=== PATIENT | male | born 1940 | race Caucasian/White ===

== ENCOUNTER 2019-12-25 15:20 | Outpatient (CLI) | payer MEDICARE, SELFPAY ==
--- NOTE | ~2019-12-25 | XR_ITS ---
XR hip RT min 2V DATE: 12/25/2019 15:50 INDICATION: Right hip pain for 2 weeks laterally. No injury. TECHNIQUE: AP, lateral, crosstable lateral views of right hip COMPARISON: 08/04/2010 right hip FINDINGS: There is severe right hip joint space narrowing and prominent spurring of the right hip con sistent with severe osteoarthritis, considerably advanced in severity since 08/04/2010. No fracture or dislocation or bone destruction is evident. Pubic symphysis and sacroiliac joints are intact. IMPRESSION: Severe osteoarthritis of right hip Reviewed, dictated and finalized at location A.
== END 2019-12-25 15:21 | disposition home or self-care (01) ==
PROVIDERS: PCP Family Medicine; Visit Provider Family Medicine
DX: M25.551 Pain in right hip (principal); M16.11 Unilateral primary osteoarthritis, right hip
CPT/HCPCS: 73502

== ENCOUNTER 2020-04-07 13:02 | Outpatient (CLI) | payer MEDICARE, SELFPAY ==
--- NOTE | ~2020-04-07 | US_ITS ---
EXAMINATION: US venous doppler LE RT EXAM DATE: 04/07/2020 13:55 INDICATION: Right leg swelling. TECHNIQUE: Multiple grayscale, color flow and Doppler images of the right lower extremity deep venous system were obtained and reviewed. There is no prior study for comparison. FINDINGS: The right common femoral, femoral and profunda veins demonstrate normal color flow, respira tory variation, augmentation and compressibility. Compressibility, color flow confirmed within the r ight popliteal, posterior tibial, peroneal, and greater saphenous veins. IMPRESSION: 1. No right lower extremity deep venous thrombosis. Reviewed, dictated and finalized at location B.
--- NOTE | ~2020-04-07 | MR_ITS ---
EXAMINATION: MR lumbar spine wo con DATE: 04/07/2020 15:26 INDICATION: Right-sided L5 radiculopathy. TECHNIQUE: Magnetic resonance imaging (MRI) of the lumbar spine was performed without intravenous con trast. Sequences included sagittal T2-weighted FSE, sagittal T2-weighted FS FSE, sagittal T1-weighted FSE, and axial T2-weighted FSE. COMPARISON: Lumbar spine radiographs 08/27/2018 FINDINGS: There is 20 degrees dextroscoliosis of thoracolumbar spine. There is 4 mm anterolisthesis o f L4 on L5. Vertebral body heights are normal. There is severely decreased disc height at L1-L2, mode rately decreased disc height from L2-L3 through L4-L5, and mildly decreased disc at L5-S1. The distal spinal cord signal intensity is normal. The conus medullaris is at T12-L1. The following disc levels are specifically discussed: L1-L2: The disc is bulging. There is severe bilateral facet joint osteoarthritis. There is mild right and severe left neural foraminal stenosis. There is mild central canal stenosis. L2-L3: The disc is bulging and has an annular fissure. There is severe bilateral facet joint osteoart hritis. There is moderate bilateral neural foraminal stenosis. There is moderate central canal stenos is. L3-L4: The disc is bulging and has an annular fissure. There is severe bilateral facet joint osteoart hritis. There is moderate bilateral neural foraminal stenosis. There is mild central canal stenosis. L4-L5: The disc is bulging and has an annular fissure. There is severe bilateral facet joint osteoart hritis. There is moderate bilateral neural foraminal stenosis. There is mild central canal stenosis. L5-S1: The disc is bulging. There is severe right and moderate left facet joint osteoarthritis. There is mild bilateral neural foraminal stenosis. There is mild central canal stenosis. IMPRESSION: 1. Severe lumbar spondylosis. 2. Thoracolumbar dextroscoliosis. Reviewed, dictated and finalized at location B.
== END 2020-04-07 13:03 | disposition home or self-care (01) ==
PROVIDERS: PCP Family Medicine; Visit Provider Orthopaedic Surgery
DX: M79.605 Pain in left leg (principal); R60.0 Localized edema; M47.26 Other spondylosis with radiculopathy, lumbar region
CPT/HCPCS: 72148; 93971

== ENCOUNTER 2020-04-21 14:25 | Outpatient (CLI) | payer MEDICARE, SELFPAY ==
--- NOTE | ~2020-04-21 | US_ITS ---
EXAMINATION: US art doppler w julisa ARMENTA EXAM DATE: 04/21/2020 15:28 INDICATION: Right leg swelling, pain. TECHNIQUE: Segmental pressures and plethysmographic and Doppler waveforms of the brachial and lower e xtremity arteries were obtained. There is no prior study for comparison. FINDINGS: Right and left brachial artery pressures of 144 mm Hg and 157 mm Hg, respectively, are concordant (no rmal difference <= 30 mmHg). RIGHT LEG: The ankle-brachial index (LALI) is 0.85 (normal >= 0.9-1). The great toe-brachial index (TBI) is 0.55 (normal >= 0.65). The lower extremity ratios, segmental pressure gradients as follows; Proximal superficial femoral artery:- Could not obtain ( mmHg). Distal superficial femoral artery: ----- 1.20 (188 mmHg). Popliteal: Could not obtain ( mmHg). Dorsalis pedis: 0.85 (133 mmHg). Posterior tibial: 0.67 (105 mmHg). (Normal gradients <= 20-30 mmHg between adjacent levels on the same leg or the same levels on the two legs). Arterial waveforms are biphasic except for the dorsalis ped is which is monophasic. LEFT LEG: The ankle-brachial index (LALI) is 1.22 (normal >= 0.9-1). The great toe-brachial index (TBI) is 0.54 (normal >= 0.65). The lower extremity ratios, segmental pressure gradients as follows; Proximal superficial femoral artery:- Could not obtain ( mmHg). Distal superficial femoral artery: ----- 1.17 (183 mmHg). Popliteal: Could not obtain ( mmHg). Dorsalis pedis: 0.86 (125 mmHg). Posterior tibial: 1.22 (191 mmHg). (Normal gradients <= 20-30 mmHg between adjacent levels on the same leg or the same levels on the two legs). Arterial waveforms are biphasic except the dorsalis pedis w hich is monophasic. IMPRESSION: 1. Right ankle-brachial index 0.85, mildly decreased. 2. Left ankle-brachial index 1.22, normal. 3. Segmental pressures as above. Reviewed, dictated and finalized at location A.
== END 2020-04-21 14:26 | disposition home or self-care (01) ==
PROVIDERS: PCP Family Medicine; Visit Provider Orthopaedic Surgery
DX: R60.0 Localized edema (principal); R09.89 Other specified symptoms and signs involving the circulatory and respiratory systems; M79.605 Pain in left leg
CPT/HCPCS: 93923

== ENCOUNTER 2020-05-01 10:45 | Outpatient (CLI) | payer MEDICARE, SELFPAY ==
--- NOTE | ~2020-05-01 | MR_ITS ---
EXAMINATION: MR hip RT wo con DATE: 05/01/2020 12:02 INDICATION: Right hip pain and weakness with abduction TECHNIQUE: Magnetic resonance imaging (MRI) of the right hip was performed without intravenous contr ast. Sequences included full-field axial PD-weighted FS FSE and T1-weighted FSE, coronal of the pelvi s with PD-weighted FS FSE, small field of view of the right hip with axial PD-weighted FS FSE, sagit jose PD-weighted FS FSE and coronal PD weighted FS FSE. Additional radial T1-weighted FGR oriented ort hogonal to the acetabular rim were obtained for evaluation of the labrum. COMPARISON: Right hip radiographs dated 12/25/2019 FINDINGS: Bones/labrum/cartilage: Again seen is advanced right hip osteoarthritis with essentially [id number] apposition along signif icant portions of the cephalad aspect of the joint space where there is also prominent subarticular c ystic change at both sides of the joint space. There is remodeling of the cephalad aspect of the femo ral head which demonstrates an increased radius of curvature. There are large marginal osteophytes ab out the right femoral head. Degeneration of the right acetabular labrum which is essentially absent a long much of the acetabulum, replaced by small marginal osteophytes. No fracture, avascular necrosis or pathologic marrow replacing process. Mild lumbar levocurvature with severe spondylosis. Some cysti c changes seen along the superolateral to posterior superior left acetabular rim which could be relat ed to either overlying chondromalacia or paravertebral cyst related to a labral tear which is not bertha gnostically evaluated on the larger field of view images. Fluid: Likely reactive small right hip joint effusion. Physiologic amount fluid at the left hip. Small amoun t of fluid overlying the left greater trochanter consistent with trochanteric bursitis. Soft tissues: No asymmetric muscular atrophy in the pelvis and visualized proximal thighs. Increased fluid signal a long the deep margin of the right iliac is muscle which could be related to muscle strain or extravas ation of fluid from the right iliopsoas bursa. The iliopsoas, gluteal and proximal hamstring tendons are normal. Mildly trabeculated mucosal surface to the bladder likely related to the chronic outlet o bstruction from the enlarged prostate which measures 4.8 x 4.3 x 4.2 cm. Moderate sigmoid diverticulo sis without adjacent inflammatory change to suggest diverticulitis. Bilateral small hydroceles, right greater than left. No pathologically enlarged pelvic/inguinal lymphadenopathy. IMPRESSION: 1. Advanced right hip osteoarthritis. 2. Severe lower lumbar spondylosis. See recent lumbar spine MRI report dated 04/07/2020 for further de tail. 3. Small amount of fluid signal along the deep margin of the iliac is muscle which could be related t o low-grade muscle strain or extravasation of fluid from the iliopsoas bursa or ganglion cyst arising from the anterior right hip. Reviewed, dictated and finalized at location A. 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 Advanced right hip osteoarthritis. 2. Severe lower lumbar spondylosis. See recent lumbar spine MRI report dated for further detail. 3. Small amount of fluid signal along the deep margin of the iliac is muscle wh ich could be related to low-grade muscle strain or extravasation of fluid from the iliopsoas bursa or ganglion cyst arising from the anterior right hip.
== END 2020-05-01 10:46 | disposition home or self-care (01) ==
PROVIDERS: PCP Family Medicine; Visit Provider Orthopaedic Surgery
DX: M16.11 Unilateral primary osteoarthritis, right hip (principal); M47.896 Other spondylosis, lumbar region
CPT/HCPCS: 73721

== ENCOUNTER 2020-08-22 14:28 | Outpatient (CLI) | payer MEDICARE, SELFPAY ==
--- NOTE | ~2020-08-22 | US_ITS ---
EXAMINATION: US venous doppler LE EXAM DATE: 08/22/2020 15:29 INDICATION: Right leg swelling. TECHNIQUE: Multiple grayscale, color flow and Doppler images of the right lower extremity deep venous system were obtained and reviewed. Comparison is made to prior examination from 04/07/2020. FINDINGS: The right common femoral, femoral and profunda veins demonstrate normal color flow, respira tory variation, augmentation and compressibility. Compressibility, color flow confirmed within the r ight popliteal, posterior tibial, peroneal, and greater saphenous veins. IMPRESSION: 1. No right lower extremity deep venous thrombosis. Reviewed, dictated and finalized at location B. 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
== END 2020-08-22 14:29 | disposition home or self-care (01) ==
PROVIDERS: PCP Family Medicine; Visit Provider Orthopaedic Surgery
DX: R60.0 Localized edema (principal)
CPT/HCPCS: 93971

== ENCOUNTER 2023-07-31 03:34 | Emergency (ER) | payer MEDICARE, SELFPAY ==
--- NOTE | ~2023-07-31 | CT_ITS ---
Non-contrast Head CT History: Head injury Technique: Axial non-contrast imaging of the brain was performed. Dose reduction technique was used on this scan by utilizing automated exposure control and iterative reconstruction technique. The dose -length product (DLP) was 681.00 mGy-cm. Findings: There is no evidence of intracranial hemorrhage, mass lesion, or acute infarct. Brain par enchyma appears normal. The ventricles and subarachnoid spaces are normal in size. The calvarium ap pears normal. The visualized paranasal sinuses and mastoid air cells are clear. There is right perio rbital soft tissue swelling. Impression: No intracranial abnormality seen. Right periorbital soft tissue swelling. Reviewed, dictated and finalized at [facility]. [facility] COORDINATOR Impression: No intracranial abnormality seen. Right periorbital soft tissue swelling.
--- NOTE | ~2023-07-31 | CT_ITS ---
Noncontrast CT scan of the cervical spine Technique: Multiple contiguous axial [address] images of the cervical spine were obtained and rec onstructed in 2D sagittal and coronal planes on the acquisition scanner. Dose reduction technique was used on this scan by utilizing automated exposure control, adjustment of the mA and/or kV according to patient size. The dose-length product (DLP) was 418.49 mGy-cm. Clinical History: Pain Findings: No fractures or dislocations. There is moderate degenerative disc narrowing at C4-C5 and C 5-C6. There is probable mild left neural foraminal narrowing at C2-C3 with facet arthropathy. There i s bilateral neural foraminal narrowing at C3-C4, with bilateral facet arthropathy. There is bilateral neural foraminal narrowing at C4-C5, with bilateral facet arthropathy, left worse than right. There is advanced bilateral neural foraminal narrowing at C5-C6, with bilateral facet arthropathy. No preve rtebral soft tissue swelling. Impression: No fracture or subluxation of the cervical spine. Degenerative spondylosis, as above. Reviewed, dictated and finalized at [facility]. INTERN Impression: No fracture or subluxation of the cervical spine. Degenerative spondylosis, as above.
[2023-07-31 03:29] VITALS: BP 150/82; PULSE 76; RESP 18; TEMP 36.6; O2SAT 99
[2023-07-31 05:02] VITALS: BP 159/71; PULSE 59; RESP 17; O2SAT 99
--- NOTE | 2023-07-31 05:47 | ED.GENADULT ---
HPI - General Adult General Chief complaint: Fall Stated complaint: FALL, LAC TO FACE Time Seen by Provider: 07/31/23 04:24 History of Present Illness HPI narrative: This is an 83-year-old male with history of Parkinson's presenting after a fall. Patient lost his balance and bathroom and hit his head on the toilet. He sustained a laceration over his right eyebrow. No dizziness, chest pain shortness of with fall and appears to be mechanical due to his Parkinson's. Patient has no complaints at this time other than pain to his face. He is actively bleeding from his laceration. No use of blood thinners. Unknown tetanus. Related Data Home Medications Medication Instructions Recorded Confirmed aspirin 81 mg tablet,delayed 81 mg PO DAILY 08/05/20 03/13/23 release (Adult Low Dose Aspirin) carbidopa 25 mg-levodopa 100 mg 1 tablet PO QID 08/05/20 03/13/23 tablet losartan 100 mg tablet 100 mg PO DAILY 08/05/20 03/13/23 pravastatin 40 mg tablet 40 mg PO DAILY 08/05/20 03/13/23 Allergies Allergy/AdvReac Type Severity Reaction Status Date / Time No Known Allergies Allergy Unknown Verified 07/31/23 03:38 [facility] Past Medical History Medical History Detrusor hyperreflexia HTN (hypertension), benign Mixed hyperlipidemia Parkinson disease Surgical History Surgical History History of arthroplasty of right hip Family History Family History Sibling Heart disease Cancer Heart attack Parkinson disease Emphysema of lung Son Cancer Father Parkinson disease Alzheimer disease Emphysema of lung Mother Chronic mental illness Social History Social History (Updated 03/13/23 @ 10:38 by Tatiana Bernal CMA) Smoking status: Former smoker Alcohol intake: never Substance use: never Concerned About Future Housing: Decline to Answer Difficulty Paying Gas/Electric Bills: Decline to Answer Difficulty Paying for Meds: Decline to Answer Currently Unemployed: Decline to Answer Education: Decline to Answer Difficulty w/ Childcare or Family Care: Decline to Answer Exam Narrative: APPEARANCE: No apparent distress. Head: 2 cm laceration over the right eyebrow EYES: EOMI, NOSE: Atraumatic NECK: Trachea midline RESPIRATORY: No increased rate of breathing CARDIOVASCULAR: RRR, ABDOMINAL: Non-distended MUSCULOSKELETAl: No obvious deformities NEURO: Alert. Moving 4/4 extremities, bradykinesia SKIN:: Warm, dry. Normal color PSYCHIATRIC: Normal affect Course Vital Signs Vital signs: Vital Signs Temperature 97.8 F 07/31/23 03:29 Pulse Rate 76 07/31/23 03:29 Respiratory Rate 18 07/31/23 03:29 Blood Pressure 150/82 H 07/31/23 03:29 Pulse Oximetry 99 07/31/23 03:29 Oxygen Delivery Room Air 07/31/23 03:29 Temperature 97.8 F 07/31/23 03:29 Pulse Rate 59 L 07/31/23 05:02 Respiratory Rate 17 07/31/23 05:02 Blood Pressure 159/71 H 07/31/23 05:02 Pulse Oximetry 99 07/31/23 05:02 Oxygen Delivery Room Air 07/31/23 03:29 Procedures Laceration Laceration 1: Date: 07/31/23 Site: face Side (If applicable): right Size (cm): 2 Description: linear Depth: simple, single layer Local Anesthetic: lidocaine 1% and with epi Amount of anesthesia used (mL): 3 Pre-repair: wound explored and irrigated ====== Skin Level ====== Skin layer closed with: prolene Size (cm): 5-0 Number of sutures: 4 Technique: simple, interrupted ====== Subcutaneous Layer ====== ====== Muscle Layer ====== ====== Tendon Layer ====== Medical Decision Making MDM Narrative Medical decision making narrative: -Course: 83-year-old male who is presenting after a fall at home. He had a 2 cm laceration over his ri
[2023-07-31 06:20] VITALS: BP 159/80
[2023-07-31] MEDS: ACETAMINOPHEN 500 MG TABLET 1000 MG PO (06:20)
[2023-07-31] MEDS: TETANUS,DIPHTHERIA,AC PERTUSSIS ADULT (0.5 ML) BOOSTRIX IM (06:20)
== END 2023-07-31 06:41 | disposition home or self-care (01) ==
PROVIDERS: Emergency Provider Emergency Medicine; PCP Family Medicine
DX: S01.111A Laceration without foreign body of right eyelid and periocular area, initial encounter (principal); Z23 Encounter for immunization; G20.A1 Parkinson's disease without dyskinesia, without mention of fluctuations; E78.2 Mixed hyperlipidemia; R29.2 Abnormal reflex; Z96.641 Presence of right artificial hip joint; Z87.891 Personal history of nicotine dependence; W01.198A Fall on same level from slipping, tripping and stumbling with subsequent striking against other object, initial encounter
CPT/HCPCS: 12011; 70450; 72125; 90471; 90715; 99284; A9270

== ENCOUNTER 2024-03-11 11:41 | Outpatient (CLI) | payer MEDICARE, SELFPAY ==
[2024-03-11 19:37] LABS: Basophils Percent Auto 0.4 % (0.2-1.2); Eosinophils Absolute Auto 0.5 K/mm3 (0-0.3); Eosinophils Percent Auto 6.9 % (0-4.4); Hematocrit 40.8 % (42.0-52.0); Hemoglobin 13.2 g/dL (14.0-18.0); Immature Granulocyte Absolute 0.03 K/mm3 (0.00-0.031); Immature Granulocyte Percent A 0.4 % (0-0.5); Lymphocytes Absolute Auto 0.77 K/mm3 (0.9-3.2); Lymphocytes Percent Auto 11.1 % (18.3-44.2); Mean Corpuscular HGB Conc 32.4 g/dl (32-36); Mean Platelet Volume 10.5 fl (7.4-10.4); Monocytes Absolute Auto 0.8 K/mm3 (0.1-0.6); Monocytes Percent Auto 10.8 % (2.6-8.5); Neutrophils Absolute Auto 4.9 K/mm3 (1.3-6.7); Neutrophils Percent Auto 70.4 % (45.5-73.1); Platelet Count Result 281 k/mm3 (150-375); White Blood Count 6.9 K/mm3 (4.5-10.0)
[2024-03-11 21:09] LABS: Alanine Aminotransferase 10 U/L (6-50); Albumin Level 4.1 g/dL (3.5-5.1); Alkaline Phosphatase 93 U/L (38-126); Anion Gap 8 mmol/L (4-12); Aspartate Amino Transferase 27 U/L (17-59); Bilirubin,Total 0.5 mg/dL (0.2-1.3); Blood Urea Nitrogen 19 mg/dL (9-20); Calcium 8.5 mg/dL (8.4-10.2); Carbon Dioxide 30 mmol/L (22-30); Chloride 98 mmol/L (98-107); Cholesterol 122 mg/dL (0-200); Estimated Glomerular Filt Rate > 60; Glucose 100 mg/dL (65-110); HDL Direct 49 mg/dL; Potassium 3.7 mmol/L (3.4-5.0); Sodium 136 mmol/L (137-145); Triglycerides 171 mg/dL (<150)
[2024-03-11 21:20] LABS: LDL Cholesterol Direct 49 mg/dL
== END 2024-03-11 11:42 | disposition home or self-care (01) ==
LOC: ANHGOSHLAB 11:42
PROVIDERS: PCP Family Medicine; Visit Provider Student in an Organized Health Care Education/Training Program
DX: E78.2 Mixed hyperlipidemia (principal); I10 Essential (primary) hypertension
CPT/HCPCS: 36415; 80053; 80061; 85025

== ENCOUNTER 2024-12-10 15:44 | Outpatient (CLI) | payer MEDICARE, SELFPAY ==
--- NOTE | ~2024-12-10 | XR_ITS ---
Lumbosacral Spine: AP and lateral views Clinical History: Pain COMPARISON: 08/27/2018 Findings: Sclerotic change of the spine is probably slightly more pronounced as compared to prior exa m. No fracture evident. There is severe degenerative disc narrowing throughout the lumbar spine. Ther e is severe facet arthropathy throughout the lumbar spine. The sacroiliac joints are normally outline d. Impression: Severe degenerative spondylosis throughout the lumbar spine. More pronounced sclerotic change of the spine as compared to prior exam. Reviewed, dictated and finalized at location M. Impression: Severe degenerative spondylosis throughout the lumbar spine. More pronounced sclerotic change of the spine as compared to prior exam.
--- NOTE | ~2024-12-10 | XR_ITS ---
AP view of the pelvis and AP and lateral views of the right hip Clinical history: Pain Findings: No acute fracture or dislocation is seen. Right hip arthroplasty in place. Left hip joint i s intact. Soft tissues are unremarkable. Impression: No acute abnormality. Right hip arthroplasty in place. Reviewed, dictated and finalized at location . Impression: No acute abnormality. Right hip arthroplasty in place.
== END 2024-12-10 15:45 | disposition home or self-care (01) ==
LOC: GOSHIMG 15:44
PROVIDERS: PCP Family Medicine; Visit Provider Family Medicine
DX: M25.551 Pain in right hip (principal); M47.816 Spondylosis without myelopathy or radiculopathy, lumbar region; Z96.641 Presence of right artificial hip joint
CPT/HCPCS: 72110; 73502